=== PATIENT | male | born 1940 | race Caucasian/White ===

== ENCOUNTER 2020-01-16 17:40 | Inpatient (IN) | payer MEDICARE, BC ==
[~2020-01-16] VITALS: Ht 177.8 cm; Wt 94.3 kg
[2020-01-16] MEDS ORDERED: IV NS 0.9% 1,000 ML BAG IV ONE (18:00)
[2020-01-16] MEDS ORDERED: MORPHINE SULFATE INJ 2 MG/ML DISP.SYRIN IV ONE ×2 (18:00→20:00)
[2020-01-16] MEDS ORDERED: ONDANSETRON HCL/PF 4 MG/2 ML VIAL IVP ONE (18:00)
[2020-01-16] MEDS ORDERED: ONDANSETRON HCL/PF 4 MG/2 ML VIAL ONE ×2 (18:19→21:25)
[2020-01-16] MEDS ORDERED: MORPHINE SULFATE INJ 4 MG/ML DISP.SYRIN ONE ×2 (18:19→19:56)
--- NOTE | 2020-01-16 18:34 | NUR ---
Patient awake alert complain of pain 10/10 meds given ,lab drw ,
[2020-01-16 19:08] LABS: CALCIUM, SERUM 9.8 mg/dL (8.5-10.1); CARBON DIOXIDE 24 mmol/L (21-32); CHLORIDE 105 mmol/L (98-107); CREATININE 1.4 mg/dL (0.6-1.3); GLUCOSE 124 mg/dL (74-106); POTASSIUM 4.7 mmol/L (3.5-5.1); SODIUM SERUM 140 mmol/L (136-145); UREA NITROGEN, BLOOD 26 mg/dL (7-18)
[2020-01-16 19:09] LABS: BASOPHILS % (AUTO) 0.1 % (0.0-2.0); EOSINOPHILS % (AUTO) 0.1 % (0.0-6.0); HEMATOCRIT 49 % (39-51); HEMOGLOBIN 16.2 g/dL (13.5-17.5); LYMPHOCYTES # (AUTO) 0.4 /CMM (0.8-4.8); LYMPHOCYTES % (AUTO) 3.3 % (20.0-44.0); MEAN CORPUSCULAR HGB CONC 33 g/dl (31.0-36.0); MEAN CORPUSCULAR VOLUME 98 fL (80-96); MONOCYTES # (AUTO) 0.3 /CMM (0.1-1.30); MONOCYTES % (AUTO) 2.6 % (2.0-12.0); NEUTROPHILS # (AUTO) 10.6 /CMM (1.8-8.9); NEUTROPHILS % (AUTO) 93.9 % (43.0-81.0); PLATELET COUNT (AUTO) 122 /CMM (150-450); RED BLOOD CELL COUNT(AUTO) 4.97 MIL/uL (4.5-6.0); WHITE BLOOD COUNT (AUTO) 11.3 K/uL (4.3-11.0)
[2020-01-16 19:21] LABS: ALANINE AMINOTRANSFERASE 31 U/L (12-78); ALBUMIN 4.2 g/dL (3.4-5.0); ALKALINE PHOSPHATASE 77 U/L (46-116); ASPARTATE AMINOTRANSFERASE 24 U/L (15-37); BILIRUBIN,DIRECT 0.3 mg/dL (0.0-0.2); BILIRUBIN,TOTAL 1.2 mg/dL (0.2-1.0); LIPASE 124 U/L (73-393); TOTAL PROTEIN, SERUM 7.9 g/dL (6.4-8.2)
--- NOTE | 2020-01-16 19:21 | NUR ---
asked pt to provide urine sample.
--- NOTE | 2020-01-16 19:28 | NUR ---
urine sent to lab
--- NOTE | 2020-01-16 19:37 | NUR ---
CALLED FOR COVID SWAB
[2020-01-16 19:38] LABS: APPEARANCE,URINE Clear (CLEAR); BILIRUBIN,URINE Negative (NEGATIVE); BLOOD, URINE Negative Ery/uL (NEGATIVE); COLOR,URINE Yellow (YELLOW); KETONES,URINE Negative (NEGATIVE); LEUKOCYTE ESTERASE ,URINE Negative (NEGATIVE); NITRITE, URINE Negative (NEGATIVE); PROTEIN,URINE Negative (NEGATIVE); UGLUCOSE Negative (NEGATIVE); UROBILINOGEN,URINE 0.2 EU/dL (0.2)
--- NOTE | 2020-01-16 19:54 | NUR ---
COVID SWAB SENT TO LAB
[2020-01-16] MEDS ORDERED: MIDAZOLAM HCL 2 MG/2ML VIAL ONE (19:56)
[2020-01-16] MEDS ORDERED: MIDAZOLAM HCL 2 MG/2ML VIAL IV ONE (20:00)
--- NOTE | 2020-01-16 20:07 | NUR ---
PT STATED HE DID NOT WANT TO RECIEVE 1MG VERSED IVP.
--- NOTE | 2020-01-16 20:18 | NUR ---
DR. CADEN BECKFORD PER JESSI MADDOX ORDER.
--- NOTE | 2020-01-16 20:19 | NUR ---
JESSI MADDOX TALKING TO DR. NEGRETE REGARDING PT ADMISSION.
--- NOTE | 2020-01-16 20:27 | NUR ---
JESSI MADDOX SPOKE TO DR. GRANT REGARDING PT.
[2020-01-16] MEDS ORDERED: IV D5/0.45 NACL 1,000 ML IV PRN (20:55)
--- NOTE | 2020-01-16 20:59 | NUR ---
NG TUBE PLACED, 425ML OF GREEEN BILOUS GASTRIC RESIDUAL.
[2020-01-16] MEDS ORDERED: MAGNESIUM HYDROXIDE 30 ML UDC PO PRN (21:00)
[2020-01-16] MEDS ORDERED: MAG HYDROX/AL HYDROX/SIMETH 30 ML UDC PO PRN (21:00)
[2020-01-16] MEDS ORDERED: ONDANSETRON HCL/PF 4 MG/2 ML VIAL IVP PRN (21:00)
[2020-01-16] MEDS ORDERED: HYDROCODONE/APAP 5/325MG TABLET PO PRN (21:00)
[2020-01-16] MEDS ORDERED: Z GUARD REMEDY 2 OZ OINT TP PRN (21:00)
[2020-01-16] MEDS ORDERED: ACETAMINOPHEN 325 MG TABLET PO PRN (21:00)
[2020-01-16] MEDS ORDERED: MORPHINE SULFATE INJ 2 MG/ML DISP.SYRIN IV PRN (21:00)
--- NOTE | 2020-01-16 21:05 | NUR ---
LAB CALLED REGARDING NEGATIVE COVID RESULT.
--- NOTE | 2020-01-16 21:09 | NUR ---
TELE 825-0
--- NOTE | 2020-01-16 21:13 | NUR ---
CALLED TO GIVEN REPORT, TOLD TO CALL BACK.
--- NOTE | 2020-01-16 21:22 | NUR ---
RECEIVED REPORT FROM KARINE PULLIAM; AWAITING PATIENT ARRIVAL TO UNIT
--- NOTE | 2020-01-16 21:22 | NUR ---
REPORT GIVEN TO GENOVEVA MILTON FOR GABI
[2020-01-16 21:30] VITALS: BP 142/73
[2020-01-16] MEDS ORDERED: ONDANSETRON HCL/PF 4 MG/2 ML VIAL IV PRN (21:30)
--- NOTE | 2020-01-16 21:30 | NUR ---
SMALL BUSINESS CONSULTANT ADMITTING NOTES PATIENT ARRIVED TO UNIT 2129 VIA GURNEY, ACCOMPANIED BY 2 ER STAFF; PATIENT AWAKE, A/OX4, BREATHING EVEN AND UNLABORED; NO SOB NOTED; TOLERATING ROOM AIR WELL; TELE MONITOR ATTACHED, READS SINUS RHYTHM 65BPM; MEDICAL HISTORY OBTAINED; SKIN ASSESSMENT DONE, SKIN INTACT; PATIENT AMBULATORY WITH STEADY GAIT; PATIENT HAS NG TUBE PLACEMENT; PATIENT IS NPO FOR TIME BEING; PATIENT VERBALIZED UNDERSTANDING; PATIENT ORIENTED TO UNIT AND STAFF; BELONGINGS CHECKED; SAFETY PRECAUTIONS IMPLEMENTED; BED LOCKED IN LOW POSITION; SIDE RAILSX2; CALL LIGHT WITHIN REACH; WILL CONT TO MONITOR; AWAITING MD ORDERS;
--- NOTE | 2020-01-16 21:39 | NUR ---
PT TRANSFERED PER ACLS PROTOCOL
[2020-01-17] VITALS (7 sets, daily range): BP systolic 122–148; BP diastolic 61–71
--- NOTE | 2020-01-17 00:04 | NUR ---
LOGISTICS PROGRAM MANAGER NOTES PATIENT VTE SCORE: 3, MD MADE AWARE; PER MD, NO CHEMICAL PROPHYLAXIS AT THIS TIME; PATIENT MAY NEED POSSIBLE SURGICAL PROCEDURE; DVT PUMPS ORDERED, PATIENT WOULD LIKE TO SLEEP WITHOUT THEM; PATIENT EDUCATED, PATIENT WANTS DVT PUMPS TO BE APPLIED LATER IN AM; WILL CONT TO MONITOR;
--- NOTE | 2020-01-17 02:50 | NUR ---
PAPER AND PULP MILL OPERATOR NOTES PATIENT SLEEPING, WAKES EASILY TO NAME/LIGHT TOUCH; PATIENT DENIES PAIN; WILL CONT TO MONITOR
[2020-01-17] MEDS ORDERED: OMEP20TA20 PO (03:32)
[2020-01-17] MEDS ORDERED: AMLO5TAB4 PO (03:32)
[2020-01-17] MEDS ORDERED: VALS320T2 PO (03:32)
--- NOTE | 2020-01-17 06:39 | NUR ---
TRANSCRIPTION TYPIST CLOSING NOTES PATIENT RESTING IN BED COMFORTABLY; A/OX4, BREATHING EVEN AND UNLABORED; TOLEARTING ROOM AIR WELL; NO SOB NOTED; NPO STATUS MAINTAINED; NG TUBE IN PLACE, WITH GREEN OUTPUT OF 525 THROUGHOUT SHIFT; NG TUBE ON LOW INTERMITTENT SUCTION; R HAND # 20 INTACT AND PATENT, INFUSING D51/2 NS @ 75ML/HR, TOLERATING IVF WELL; PATIENT ABLE TO MAKE NEEDS KNOWN; ALL NEEDS RENDERED; SAFETY PRECAUTIONS IMPLEMENTED; BED LOCKED IN LOW POSITION; SIDE RAILSX2; CALL LIGHT WITHIN EASY REACH; WILL ENDORSE GABI TO ONCOMING SHIFT
[2020-01-17 07:12] LABS: BASOPHILS % (AUTO) 0.2 % (0.0-2.0); HEMATOCRIT 45 % (39-51); HEMOGLOBIN 15.1 g/dL (13.5-17.5); LYMPHOCYTES # (AUTO) 0.4 /CMM (0.8-4.8); LYMPHOCYTES % (AUTO) 4.4 % (20.0-44.0); MEAN CORPUSCULAR HGB CONC 33 g/dl (31.0-36.0); MEAN CORPUSCULAR VOLUME 97 fL (80-96); MONOCYTES # (AUTO) 0.5 /CMM (0.1-1.30); MONOCYTES % (AUTO) 5.4 % (2.0-12.0); NEUTROPHILS # (AUTO) 9.1 /CMM (1.8-8.9); PLATELET COUNT (AUTO) 141 /CMM (150-450); RED BLOOD CELL COUNT(AUTO) 4.68 MIL/uL (4.5-6.0); WHITE BLOOD COUNT (AUTO) 10.1 K/uL (4.3-11.0)
--- NOTE | 2020-01-17 08:10 | NUR ---
TELE/RN NOTE THE PATIENT IS RECEIVED IN BED. THE PATIENT IS ALERT AND ORIENTED X4. NOTED WITH NG TUBE WITH LOW INTERMITTENT SUCTION AND GREEN OUTPUT. DENIES PAIN. RESPIRATION REGULAR AND UNLABORED. EXTERNAL TELE BOX READING IS SR 85. THE PATIENT NPO. RIGHT HAND G 20 PATENT AND D5 1/2 NS INFUSING AT 75ML/HR. NO S/S INFILTRATION NOTED. BED LOW AND LOCKED. SIDE RAILS UP X3. CALL LIGHT WITHIN REACH. WILL CONTINUE TO MONITOR.
[2020-01-17 08:32] LABS: ALANINE AMINOTRANSFERASE 29 U/L (12-78); ALBUMIN 3.4 g/dL (3.4-5.0); ALKALINE PHOSPHATASE 69 U/L (46-116); ASPARTATE AMINOTRANSFERASE 20 U/L (15-37); BILIRUBIN,DIRECT 0.3 mg/dL (0.0-0.2); CALCIUM, SERUM 8.5 mg/dL (8.5-10.1); CARBON DIOXIDE 25 mmol/L (21-32); CHLORIDE 106 mmol/L (98-107); CREATININE 1.4 mg/dL (0.6-1.3); GLUCOSE 123 mg/dL (74-106); MAGNESIUM 2.2 mg/dL (1.8-2.4); PHOSPHORUS 2.9 mg/dL (2.5-4.9); POTASSIUM 4.8 mmol/L (3.5-5.1); SODIUM SERUM 141 mmol/L (136-145); TOTAL PROTEIN, SERUM 6.7 g/dL (6.4-8.2); UREA NITROGEN, BLOOD 25 mg/dL (7-18)
--- NOTE | 2020-01-17 08:35 | NUR ---
RN Anastasia will speak with ordering MD for Small bowel follow through before Radiology begins exam. NG tube needs to be good to inject the oral contrast. Please verfiy. Call extension [phone] when ready.
[2020-01-17] MEDS ORDERED: DIATR MEGLU/DIATRIZOATE SODIUM 120 ML BOTTLE (GASTROGRAPHIN) ONE (08:51)
--- NOTE | 2020-01-17 09:22 | NUR ---
TELE/RN NOTE THE PATIENT IS TAKEN TO RADIOLOGY DEPT FOR SMALL BOWEL FOLLOW. THE PATIENT LEFT THE UNIT IN STABLE CONDITION.
--- NOTE | 2020-01-17 18:03 | NUR ---
TELE/RN NOTE DR GRANT IS MADE AWARE OF SMALL BOWEL FOLLOW-THROUGH RESULT AND RECEIVED AN ORDER FROM DR GRANT TO DISCONTINUE NG TUBE AND START THE PATIENT ON CLEAR LIQUID DIET. THE ORDERS AREA READ BACK, VERIFIED. NOTED AND CARRIED OUT.
--- NOTE | 2020-01-17 18:47 | NUR ---
TELE/RN NOTE THE PATIENT IS ALERT AND ORIENTED X4. IN ROOM AIR AND OXYGEN SATURATION IS AT 97%. DENIES SOB. RESPIRATION REGULAR AND UNLABORED. THE PATIENT TOLERATED CLEAR LIQUID DIET WELL. NO NAUSEA OR VOMITING. ABDOMEN SOFT AND NON-DISTENDED. NO TUBE DISCONTINUED PER ORDER WITH NO OUTPUT DURING THE SHIFT. RIGHT HAND G 20 PATENT AND D5 1/2 NS INFUSING AT 75ML/HR AND NO S/S INFILTRATION NOTED. BED LOW AND LOCKED. SIDE RAILS UP X2. CALL LIGHT WITHIN REACH. WILL ENDORSE TO CELL TUBER HAND.
--- NOTE | 2020-01-17 20:08 | NUR ---
MS/TELE/RN DURING INITIAL ROUNDING AT 1930, PATIENT WAS ON BED AWAKE, ALERT, ORIENTED, COMFORTABLE NO C/O PAIN,NO DISTRESS NOTED, FALL PRECAUTIONS PER PROTOCOL IMPLEMENT, CALL LIGHT IN REACH. WILL MONITOR.
--- NOTE | 2020-01-17 21:53 | NUR ---
MS/TELE/RN PATIENT REFUSED THE IV FLUIDS DESPITE EXPLANATION TO ITS IMPORTANCE HE IS ON CLEAR LIQUIDS DIET. WILL CONTINUE TO MONITOR.
[2020-01-18] VITALS: BP 138/72
--- NOTE | 2020-01-18 06:33 | NUR ---
MS/TELE/RN PATIENT IS STILL SLEEPING AT THIS TIME, APPEAR COMFORTABLE, NO SIGNS OF DISTRESS NOTED, CALL LIGHT IN REACH, ALL NEEDS ATTENDED AT THIS TIME, WILL CONTINUE TO MONITOR.
[2020-01-18 07:17] LABS: BASOPHILS % (AUTO) 0.5 % (0.0-2.0); EOSINOPHILS % (AUTO) 1.8 % (0.0-6.0); HEMATOCRIT 44 % (39-51); HEMOGLOBIN 14.6 g/dL (13.5-17.5); LYMPHOCYTES # (AUTO) 0.9 /CMM (0.8-4.8); LYMPHOCYTES % (AUTO) 13.1 % (20.0-44.0); MEAN CORPUSCULAR HGB CONC 34 g/dl (31.0-36.0); MEAN CORPUSCULAR VOLUME 97 fL (80-96); MONOCYTES # (AUTO) 0.7 /CMM (0.1-1.30); MONOCYTES % (AUTO) 10.1 % (2.0-12.0); NEUTROPHILS # (AUTO) 5.1 /CMM (1.8-8.9); NEUTROPHILS % (AUTO) 74.5 % (43.0-81.0); PLATELET COUNT (AUTO) 124 /CMM (150-450); RED BLOOD CELL COUNT(AUTO) 4.49 MIL/uL (4.5-6.0); WHITE BLOOD COUNT (AUTO) 6.9 K/uL (4.3-11.0)
--- NOTE | 2020-01-18 07:30 | NUR ---
RN OPENING NOTE RECEIVED PATIENT IN BED ALERT AND ORIENTED X4. NO CARDIAC OR RESPIRATORY DISTRESS NOTED. NO SOB NOTED. SATURATING WELL ON ROOM AIR. DENIES SOB. RESPIRATION REGULAR AND UNLABORED. ABDOMEN SOFT AND NON-DISTENDED. IV ACCESS NOTED ON RIGHT HAND G 20 PATENT AND INTACT AND FLUSHONG WELL. PT HAS BEEN REFUSING IV FLUIDS SINCE LAST NIGHT, PER SHORTHAND TEACHER NURSE. NO S/S OF INFILTRATION NOTED. SAFETY PRECAUTIONS IN PLACE. BED LOW AND LOCKED. SIDE RAILS UP X2. CALL LIGHT WITHIN REACH. WILL CONT TO MONITOR.
[2020-01-18 08:00] VITALS: BP 154/78
[2020-01-18 08:08] LABS: ALANINE AMINOTRANSFERASE 26 U/L (12-78); ALBUMIN 3.2 g/dL (3.4-5.0); ALKALINE PHOSPHATASE 64 U/L (46-116); ASPARTATE AMINOTRANSFERASE 24 U/L (15-37); BILIRUBIN,TOTAL 1.5 mg/dL (0.2-1.0); CALCIUM, SERUM 8.2 mg/dL (8.5-10.1); CARBON DIOXIDE 25 mmol/L (21-32); CHLORIDE 109 mmol/L (98-107); CREATININE 1.5 mg/dL (0.6-1.3); GLUCOSE 87 mg/dL (74-106); MAGNESIUM 2.2 mg/dL (1.8-2.4); PHOSPHORUS 2.1 mg/dL (2.5-4.9); POTASSIUM 4.1 mmol/L (3.5-5.1); SODIUM SERUM 143 mmol/L (136-145); TOTAL PROTEIN, SERUM 6.2 g/dL (6.4-8.2); UREA NITROGEN, BLOOD 25 mg/dL (7-18)
[2020-01-18] MEDS ORDERED: NEUTRA PHOS 1 POWD.PACKET PO ONE (14:00)
--- NOTE | 2020-01-18 15:00 | NUR ---
BODY CHECK/INVENTORY BODY CHECK DONE. PT SKIN IS INTACT. IV ACCESS REMOVED ON L HAND. NO BLEEDING NOTED. APPLIED PRESSURE DRESSING. INVENTORY DONE WITH PT. PER PT HE HAS ALL OF HIS BELONGINGS. PT ACKNOWLEDGED AND SIGNED INVENTORY LIST.
--- NOTE | 2020-01-18 15:15 | NUR ---
D/C HOME PT DISCHARGED HOME IN STABLE CONDITION. PT IS AOX4. ALL D/C INSTRUCTIONS PROVIDED TO PT. EXPLAINED ALL MEDS AND D/C INSTRUCTIONS IN LAYMENS TERM. PT UNDERSTOOD. NO CARDIAC OR RESPIRATORY DISTRESS NOTED. NO SOB NOTED. SATURATING WELL ON ROOM AIR. DENIES SOB. RESPIRATION REGULAR AND UNLABORED. ABDOMEN SOFT AND NON-DISTENDED. NO C/O OF NAUSEA AND VOMITING. IV ACCESS REMOVED ON R HAND. NO BLEEDING NOTED. PT WAS PICKED UP BY HIS FRIEND VIA PRIVATE CAR.
== END 2020-01-18 15:15 | disposition home or self-care (01) | DRG 388 ==
LOC: ER 17:45 → MED 21:12 → TELE 21:40 → MED 01-18 11:16
PROVIDERS: ADMIT Internal Medicine; ATTEND Hospitalist
DX: K56.609 Unspecified intestinal obstruction, unspecified as to partial versus complete obstruction (principal); N17.0 Acute kidney failure with tubular necrosis; N11.9 Chronic tubulo-interstitial nephritis, unspecified; K21.9 Gastro-esophageal reflux disease without esophagitis; K57.30 Diverticulosis of large intestine without perforation or abscess without bleeding; K44.9 Diaphragmatic hernia without obstruction or gangrene; Z90.49 Acquired absence of other specified parts of digestive tract; M54.30 Sciatica, unspecified side; Z88.4 Allergy status to anesthetic agent; Z79.899 Other long term (current) drug therapy; I12.9 Hypertensive chronic kidney disease with stage 1 through stage 4 chronic kidney disease, or unspecified chronic kidney disease; N18.9 Chronic kidney disease, unspecified
CPT/HCPCS: 36415; 74250-TC; 80048-TC; 80053-TC; 80076-TC; 81000-TC; 83605-TC; 83690-TC; 83735-TC; 84100-TC; 84484-TC; 85025-TC; 87081-TC; 87086-TC; 93307-TC; C9803-CS; G0378; J2250; J2270; J2405; J3490; J7030; Q9963